=== PATIENT | male | born 1975 | race African-American/Black ===

== ENCOUNTER 2017-01-29 08:54 | Emergency (ER) | payer SELFPAY ==
[~2017-01-29] VITALS: Ht 188 cm; Wt 110.0 kg
[~2017-01-29 08:54] MED LIST: LORT7.5T3 PO; SULF1TAB47 PO
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
[2017-01-29] MEDS ORDERED: CYCLOBENZAPRINE HCL 10 MG TAB PO ONE (10:15)
[2017-01-29] MEDS ORDERED: IBUPROFEN 800 MG TAB PO ONE (10:15)
[2017-01-29] MEDS ORDERED: IBUP1TAB7 PO (10:16)
[2017-01-29] MEDS ORDERED: CYCL10TA PO (10:16)
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
[2017-01-29 11:06] VITALS: BP 140/81; PULSE 89; RESP 16; TEMP 98.2; O2SAT 98
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
== END 2017-01-29 11:53 | disposition home or self-care (01) ==
LOC: NEPK 08:54
DX: S39.012A Strain of muscle, fascia and tendon of lower back, initial encounter (principal); S16.1XXA Strain of muscle, fascia and tendon at neck level, initial encounter; F17.200 Nicotine dependence, unspecified, uncomplicated; V49.9XXA Car occupant (driver) (passenger) injured in unspecified traffic accident, initial encounter; Z79.899 Other long term (current) drug therapy
CPT/HCPCS: 72125; 72131; 99284

== ENCOUNTER 2017-07-24 21:10 | Emergency (ER) | payer SELFPAY ==
[~2017-07-24] VITALS: Ht 188 cm; Wt 108.0 kg
[~2017-07-24 21:10] MED LIST changes: +CYCL10TA PO; +IBUP1TAB7 PO
[2017-07-24 21:26] VITALS: BP 182/118; PULSE 82; RESP 22; TEMP 98.1; O2SAT 97
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
[2017-07-24] MEDS ORDERED: LIDOCAINE HCL 1% PF 30 ML VIAL INFIL ONE (22:00)
[2017-07-24] MEDS ORDERED: PROPARACAINE HCL 0.5% OPHT SOLN 15 ML BTL LEFT EYE ONE (22:00)
[2017-07-24] MEDS ORDERED: HYDR12.57 PO (22:07)
[2017-07-24] MEDS ORDERED: AMLO10TA2 PO (22:07)
--- NOTE | 2017-07-24 22:45 | PD ---
Physical Exam Date Seen by Provider: July 24, 2017 Time Seen by Provider: 22:39 Data Data Last Documented VS Vital Signs Date Time Temp Pulse Resp B/P (MAP) Pulse Ox O2 Delivery O2 Flow Rate FiO2 07/24/17 21:26 98.1 82 22 182/118 (139) 97 Orders Orders Wound Care (07/24/17 21:39) Ct Brain W/O Iv Contrast(Rout) (07/24/17 ) Ct Facial Bones W/O Iv Cont (07/24/17 ) Ice/Cold Pack (07/24/17 21:39) Proparacaine 0.5% Opth Soln (Alcaine 0.5 (07/24/17 22:00) Lidocaine Pf 1% Inj (Xylocaine-Mpf 1% In (07/24/17 22:00) MDM Supervised Visit with JAYLIN: No Narrative Course I was asked to evaluate this patient's facial and lip lacerations. The patient was initially seen by Dr. Weiss. Please see her note for full H& P. On my exam there is a 1 cm superficial laceration in the medial crease below the left eye. There is a 1 cm laceration on the left cheek. There is a 1 cm laceration below the lower lip, right side. There are 2 intraoral lacerations. The first approximately 1 cm on the mucosal border of the lower lip, right side. One intraoral approximately 1 cm, stellate. Laceration repair was performed 5. Please see my procedure note for details. Dr. Weiss retains care of this patient. Please see her note for disposition. Procedures Procedure Narrative LACERATION LOCATION: Medial aspect just below the left eye LENGTH: 1 cm NUMBER OF STITCHES/GOGO: 0 REPAIR: The wound was copiously irrigated and explored without evidence of foreign body, tendon injury or neurovascular injury. The wound was closed using Dermabond. This was a single layer repair. The patient was advised to keep the dressing clean and dry. Patient tolerated the procedure well. LACERATION LOCATION: Left cheek bone LENGTH: 1 cm NUMBER OF STITCHES/GOGO: 1 REPAIR: The area of the laceration was prepped with Betadine and sterilely draped. The laceration was infiltrated with 1% lidocaine. The wound was copiously irrigated and explored without evidence of foreign body, tendon injury or neurovascular injury. The wound was closed using 4-0 Prolene. This was a single layer repair. A sterile dressing was applied. The patient was advised to keep the dressing clean and dry. Patient tolerated the procedure well. LACERATION LOCATION: Inferior lower lip, right aspect LENGTH: 1 cm NUMBER OF STITCHES/GOGO: 1 REPAIR: The area of the laceration was prepped with Betadine and sterilely draped. The laceration was infiltrated with 1% lidocaine. The wound was copiously irrigated and explored without evidence of foreign body, tendon injury or neurovascular injury. The wound was closed using 4-0 Prolene. This was a single layer repair. A sterile dressing was applied. The patient was advised to keep the dressing clean and dry. Patient tolerated the procedure well. LACERATION LOCATION: Lower lip, right aspect LENGTH: 2 cm NUMBER OF STITCHES/GOGO: 4 REPAIR:The area of the laceration was prepped with Betadine and sterilely draped. The laceration was infiltrated with 1% lidocaine. The wound was copiously irrigated and explored without evidence of foreign body, tendon injury or neurovascular injury. The wound was closed using 4-0 Vicryl. This was a single layer repair. The patient was advised to keep the wound clean and dry. Patient tolerated the procedure well. LACERATION LOCATION: Oral mucosa right lower aspect LENGTH: 2 cm stellate NUMBER OF STITCHES/GOGO: 4 REPAIR: The laceration was infiltrated with 1% lidocaine. The wound was copiously irrigated and explored without evidence of foreign body, tendon injury or neurovascular injury. The wound was closed using 4-0 Vicryl. This was a single layer repair. The patient was advised to keep the dressing clean and dry. Patient tolerated the procedure well. Kylee Ahuja July 24, 2017 22:45
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
[2017-07-25] MEDS ORDERED: AUGM875T3 PO (01:14)
[2017-07-25] MEDS ORDERED: ZOFR4TAB3 SL (01:14)
[2017-07-25] MEDS ORDERED: PERC5TAB12 PO (01:14)
[2017-07-25] MEDS ORDERED: ONDANSETRON ODT 4 MG TAB PO ONE (01:30)
[2017-07-25] MEDS ORDERED: oxyCODONE/ACETAMINOPHEN 5 MG/325 MG TAB PO ONE (01:30)
== END 2017-07-25 01:38 | disposition home or self-care (01) ==
LOC: NEPC 21:10
DX: S02.82XA Fracture of other specified skull and facial bones, left side, initial encounter for closed fracture (principal); S02.40DA Maxillary fracture, left side, initial encounter for closed fracture; S01.512A Laceration without foreign body of oral cavity, initial encounter; S01.511A Laceration without foreign body of lip, initial encounter; S01.412A Laceration without foreign body of left cheek and temporomandibular area, initial encounter; H11.32 Conjunctival hemorrhage, left eye; F17.200 Nicotine dependence, unspecified, uncomplicated; Y04.2XXA Assault by strike against or bumped into by another person, initial encounter; Y92.512 Supermarket, store or market as the place of occurrence of the external cause
CPT/HCPCS: 12013; 40830; 70450; 70486